=== PATIENT | female | born 1995 | race Caucasian/White ===

== ENCOUNTER 2024-09-25 14:26 | Emergency (ER) | payer OTHER, SELFPAY ==
[2024-09-25 14:53] VITALS: BP 133/98; PULSE 88; RESP 18; TEMP 37.2; O2SAT 100
--- NOTE | 2024-09-25 14:56 | ED.URI ---
HPI - URI/Sore Throat General Chief Complaint: Upper Respiratory Infection Stated Complaint: sore throat History of Present Illness HPI Narrative: 29-year-old female presented for complaint of sore throat worsening over the last 2 days. Patient tested positive for strep 9 days ago and completed azithromycin as prescribed. She states she felt better while taking the antibiotic. Denies any associated symptoms. Related Data Home Medications ?Medication ?Instructions ?Recorded ?Confirmed ?Last Taken ?Type No Home Medications 09/25/24 09/25/24 Unknown History Allergies Allergy/AdvReac Type Severity Reaction Status Date / Time Sulfa (Sulfonamide Allergy Other Verified 09/25/24 14:54 Antibiotics) Review of Systems Review of Systems: ROS per HPI [facility] Past Medical History Medical History Anxiety Dysuria Surgical History Surgical History History of cholecystectomy Family History Family History Mother No problems noted. Father No problems noted. Grandparent Lung cancer Social History Social History Social History: 07/22/24 very confident with medical forms Smoking status: Never smoker Alcohol intake: current Alcohol use details: social Substance use: never Substance use type: does not use Do You Feel Safe in your Home?: Yes Lack of Transportation: No Lack of Food: Never True Current Housing: I Have Housing Concerned About Future Housing: No Difficulty Paying Gas/Electric Bills: No Difficulty Paying for Meds: No Currently Unemployed: No Education: High School Diploma/GED Difficulty w/ Childcare or Family Care: No Living arrangements: with family Occupation/Education: occupation Additional occupation/education comments: [employer] Gender identity (if verbalized by the patient): Female Sexual Orientation (if Verbalized by the Patient): Straight or Heterosexual Exam Narrative: GENERAL: well-appearing, no acute distress. EYES: conjunctivae clear ENT: Mucous membranes moist. TM pearly dowell with normal light reflex bilaterally; no tragal tenderness. Oropharynx not erythematous without lesions. Tonsils not enlarged and without exudate. No drooling, no hoarseness, no trismus, uvula midline. No tripod positioning, hot potato voice, or soft palate swelling. NECK: Supple. No lymphadenopathy CHEST: Clear to auscultation, breath sounds equal. No respiratory distress, speaks in full sentences. HEART: Regular rate and rhythm. No murmur heard. SKIN: Warm, dry, no rash. NEURO: Alert and oriented x3. Course Course Emergency Course: Patient is aware of diagnosis, understands and agrees to treatment plan. Anticipatory guidance given. Patient agrees to follow-up as directed and is aware of reasons to seek care at the emergency department. Portions of this record may have been created with voice recognition software Level of Care: Express Care Visit Vital Signs Vital signs: Vital Signs Temperature 99.0 F 09/25/24 14:53 Pulse Rate 88 09/25/24 14:53 Respiratory Rate 18 09/25/24 14:53 Blood Pressure 133/98 H 09/25/24 14:53 Pulse Oximetry 100 09/25/24 14:53 Oxygen Delivery Room Air 09/25/24 14:53 Temperature 99.0 F 09/25/24 14:53 Pulse Rate 88 09/25/24 14:53 Respiratory Rate 18 09/25/24 14:53 Blood Pressure 133/98 H 09/25/24 14:53 Pulse Oximetry 100 09/25/24 14:53 Oxygen Delivery Room Air 09/25/24 14:53 MDM - URI/Sore Throat MDM Narrative Medical decision making narrative: neg strep result reviewed with pt. Advise supportive treatments. Patient is appropriate for outpatient treatment and follow-up. Differential Diagnosis Differential diagnosis: Likely upper respiratory infection, viral infection and pharyngitis Discharge Plan Discharge Clinical Impression: Pharyngitis Patient Disposition: Home, Self-Care Condition: Stable Instructions: Antibiotic Form, Pharyngitis (ED) Additional Instructions: Rapid strep swab was negative today You will be notified in a few days if the culture comes back positive for strep, and appropriate antibiotics will be called in at that time. if symptoms are due to a viral illness, it is not treated with antibiotics. Viral symptoms can be present for up to 10-14 days. Recommend Flonase spray and Zyrtec for sinus congestion Cough syrup may cause drowsiness; avoid driving or take it at night time. Tylenol every 8 hours as needed for pain/fever Soft foods, cool liquids, warm tea. Gargle with warm saltwater twice a day. Chloraseptic spray and throat lozenges. Rest and stay hydrated. --Follow up with your PCP --Go to the ER immediately if you cannot swallow your saliva, trouble breathing/wheezing, throat swelling, pain is persistent and severe Patient Language: Arabic Prescriptions: No Action No Home Medications Follow-up/Referrals: Neelima Morris PA-C [Primary Care Provider] -
[2024-09-25 19:46] LABS: EDSTREPNEGPOS1 Negative (Negative)
== END 2024-09-25 15:11 | disposition home or self-care (01) ==
PROVIDERS: Emergency Provider Nurse Practitioner Family; PCP Physician Assistant Medical
DX: J02.9 Acute pharyngitis, unspecified (principal)
CPT/HCPCS: 87081; 87880; 99213; G0463